=== PATIENT | female | born 1950 | race Caucasian/White ===

== ENCOUNTER 2019-01-04 06:12 | Day surgery (SDC) | payer MEDICARE, OTHER, SELFPAY ==
[2018-12-31 07:54] VITALS: BMI 42.1
[2019-01-04] VITALS (7 sets, daily range): BP systolic 115–149; BP diastolic 58–74; PULSE 59–68; RESP 13–20; TEMP 36.1–36.7; O2SAT 92–98; BMI 42.5
[2019-01-04] MEDS: LACTATED RINGERS 1,000 ML 42 ML IV (07:30)
--- NOTE | 2019-01-04 07:33 | PM.PREOP ---
Pre-operative Note Interval Note History & Physical reviewed/Exam performed by Physician: Yes Changes to H&P: No
--- NOTE | 2019-01-04 07:45 | SUR.PREOP ---
Called [employer], no record of pacemaker from either company. Dr. Lazar notified.
[2019-01-04] MEDS: CEFAZOLIN 2 GM/100 ML FROZ.PIGGY IV (08:00)
--- NOTE | 2019-01-04 08:09 | SUR.OPER ---
Supine on padded OR bed, head on pillow, left arm on arm table under control of surgeon and PA, right arm secured on padded arm boards at <90 degrees abduction, legs uncrossed, safety belt at thigh, tape over blanket over lower legs.
[2019-01-04] MEDS: BUPIVACAINE 0.5% W/ EPI (PF) VIAL 10 ML INJ (08:16)
--- NOTE | 2019-01-04 08:52 | PM.OP.1 ---
Operative Date/Time/Diagnoses Date of procedure: 01/04/19 Time of procedure: 08:00 Pre-op diagnosis: Left basal thumb arthritis Post-op diagnosis: same Procedure & Clinicians Procedure: Left thumb ligament reconstruction tendon interposition Same procedure as scheduled: Yes Indications: Left basal thumb arthritis Surgeon: Bernard Perez [employer] Maintenance Technician: Tabitha Funes Anesthesia Type: General Operative Notes Findings: End-stage arthritic changes to the basal joint Closure Type: primary Specimen(s): none sent Applied: implant(s) (Tenodesis screw) Estimated Blood Loss (mL): 2 Blood products transfused: none Tourniquet time (min): 35 Procedure in detail: On date of service, the patient was met in the holding area. The operative site was signed and witnessed by the OR staff. The surgery was once again discussed with patient, and any remaining questions Were answered fully. Patient was taken back to the operating theater and placed on the operating table in a supine position. Great care was taken to ensure that all bony prominences were properly padded. A well-padded tourniquet was placed up along the upper extremity. A timeout was performed verifying patient's name, procedure, and operative site. The arm was prepped and draped in the normal sterile fashion. An Esmarch was used to exsanguinate the limb and the tourniquet was turned up to 250 mm mercury. A 15 blade was used to incise the skin only in a dorsal radial position. Pickups and tenotomy 3 used to dissect down through the fascial tissue. Great care was taken to ensure that the branches off the superficial radial nerve root identified and protected. Next, an interval was made between EPB and APL. The recurrent branch of the radial artery was identified and protected. The capsular tissues surrounding the basal joints was opened and released around the trapezium and a 360? fashion. This gave us good visualization of the basal joint as well as the trapezial scaphoid joint. Significant arthritis at the basal joints but no sign of any arthritis at the trapezial scaphoid joint. Next the trapezium was removed as well as any potential osteophytes. The wound was then copiously irrigated to remove any remaining bony fragments. The FCR tendon was then harvested. A drill was then used to make a bony tunnel through the first metacarpal. Guidewire was placed through the bony tunnel and the FCR tendon was pulled through the bony tunnel. With the tendon under tension, a tenodesis screw was placed securing the tendon into the bony tunnel. This provided a secure suspension plasty of the thumb, as well as recreating the beak ligament. The wound was irrigated once again. A thick capsular closure was performed using 2-0 Ethibond. The rest of the wound was closed in a layered fashion. The hand was then cleaned, dried, and dressed. Patient was placed into a thumb spica splint. Patient was taken back to the PACU in stable condition. Complications: none Post-operative Condition: stable Disposition: PACU Plan for aftercare: Patient will follow our postoperative protocol for and LR TI of the left thumb. No restrictions to motion 2 weeks after surgery.
[2019-01-04] MEDS: OXYCODONE/ACETAMINOPHEN 5/325 TABLET 1 TAB PO (09:25)
== END 2019-01-04 09:45 | disposition home or self-care (01) ==
PROVIDERS: Visit Provider Orthopaedic Surgery
PROC: (CPT 26540; principal; 2019-01-04 07:45)
DX: M18.11 Unilateral primary osteoarthritis of first carpometacarpal joint, right hand (principal)
CPT/HCPCS: 25447; 25310; J0690; J1100; J2405; J2704; J3010